=== PATIENT | female | born 1950 ===

== ENCOUNTER 2021-04-02 12:25 | Inpatient (IN) ==
[~2021-04-02 12:25] MED LIST: Buffered Lidocaine 1% SYRIN 1 ml INTRADERM ONE; Lactated Ringers 1000 ml BAG 1,000 ML IV SCH
[2021-04-02] MEDS ORDERED: ceFAZolin 2 GM PREMIX 2 GM/50 ML BAG ONE (12:44)
[2021-04-02] MEDS ORDERED: fentaNYL 100 mcg/2 ml 50 MCG/ML VIAL IV PRN (14:04)
[2021-04-02] MEDS ORDERED: Acetaminophen IV 1 GM/100ML 100 ML IV PRN (14:04)
[2021-04-02] MEDS ORDERED: HYDROmorphone 1 MG/1 ML SYRINGE IV PRN (14:04)
[2021-04-02] MEDS ORDERED: Ondansetron 4 mg VIAL 2 MG/ML 2 ml VIAL IV PRN ×2 (14:04→15:06)
[2021-04-02] MEDS ORDERED: Naloxone 0.4 mg VIAL 0.4 mg/ml 1 ml VIAL IV PRN (14:04)
[2021-04-02] MEDS ORDERED: DiMENhydriNATE IV 50 mg/ml 1 ml VIAL IV PUSH PRN (14:04)
[2021-04-02] MEDS ORDERED: ROPIVACAINE 5 MG/ML 30 ML BTL (0.5%) ONE (14:15)
[2021-04-02] MEDS ORDERED: Midazolam 2 mg/2 ml VIAL 1 mg/ml 2 ml VIAL (2 mg) ONE ×2 (14:36→15:05)
[2021-04-02] MEDS ORDERED: Propofol 10 MG/ML 20 ML BTL ONE ×2 (14:36→16:20)
[2021-04-02] MEDS ORDERED: Ondansetron ODT 4 mg TAB 4 MG TAB PO PRN (15:06)
[2021-04-02] MEDS ORDERED: Magnesium Hydroxide LIQ 30 ML UDC PO PRN (15:06)
[2021-04-02] MEDS ORDERED: Lactulose 30 ml UDC PO PRN (15:06)
[2021-04-02] MEDS ORDERED: diPHENhydraMINE 25 mg TAB PO PRN (15:06)
[2021-04-02] MEDS ORDERED: diPHENhydraMINE IV 50 MG/ML 1 ml VIAL (BENADRYL) IV PRN (15:06)
[2021-04-02] MEDS ORDERED: Lidocaine 2% PF 5 ML VIAL ONE (15:06)
[2021-04-02] MEDS ORDERED: Fluticasone NASAL SPRAY 50MCG 16 gm SPRAY BTL BOTH NARES PRN (15:12)
[2021-04-02] MEDS ORDERED: Lactated Ringers 1000 ml BAG 1,000 ML IV SCH (16:00)
[2021-04-02] MEDS ORDERED: Phenylephrine 40 mcg/mL 10mL (400mcg) SYRINGE ONE (16:05)
[2021-04-02] MEDS: Magnesium Hydroxide LIQ 30 ML UDC PO SCH (21:51)
[2021-04-02] MEDS: ceFAZolin 1 GM ADVAN 1 GM in NS 0.9% 50 ML 50 ML IVPB SCH (23:42)
[2021-04-03 06:51] LABS: Hematocrit 34 % (35-47); Hemoglobin 11.7 g/dL (12.0-16.0); Mean Platelet Volume 8.1 fL (7.4-10.4); Platelet Count 179 10^3/uL (150-450)
[2021-04-03 07:11] LABS: Calcium 9.1 mg/dL (8.6-10.3); Potassium 3.6 mmol/L (3.5-5.0); eGFR CKD-EPI 84.5 (>60)
[2021-04-03] MEDS: ceFAZolin 1 GM ADVAN 1 GM in NS 0.9% 50 ML 50 ML IVPB SCH ×2 (07:37→15:12)
[2021-04-03] MEDS ORDERED: Vitamin THERAPEUTIC TAB PO SCH (09:00)
[2021-04-03] MEDS: Magnesium Hydroxide LIQ 30 ML UDC PO SCH (09:22)
[2021-04-03 12:04] VITALS: BP 121/53
== END 2021-04-03 16:45 | disposition home or self-care (01) | DRG 470 ==
LOC: AA 12:25 → SSU 18:51
PROVIDERS: ADMIT Orthopaedic Surgery Adult Reconstructive Orthopaedic Surgery; ATTEND Orthopaedic Surgery Adult Reconstructive Orthopaedic Surgery